=== PATIENT | male | born 1990 | race Caucasian/White ===

== ENCOUNTER 2020-07-02 02:17 | Inpatient (IN) | payer BC ==
[~2020-07-02] VITALS: Ht 190.5 cm; Wt 59.6 kg
[2020-07-02 02:55] LABS: BASOPHILS ABSOLUTE AUTO 0.03 K/mm3 (0.00-0.23); BASOPHILS PERCENT AUTO 0 % (0-2); EOSINOPHILS ABSOLUTE AUTO 0.13 K/mm3 (0.00-0.68); EOSINOPHILS PERCENT AUTO 1 % (0-6); IMMATURE GRAN ABSOLUTE AUTO 0.03 K/mm3 (0.00-0.10); IMMATURE GRAN PERCENT AUTO 0 % (0-1); LYMPHOCYTES ABSOLUTE AUTO 2.94 K/mm3 (0.84-5.20); LYMPHOCYTES PERCENT AUTO 33 % (21-46); MONOCYTES ABSOLUTE AUTO 0.54 K/mm3 (0.16-1.47); MONOCYTES PERCENT AUTO 6 % (4-13); Mean Corpuscular HGB Conc 35.4 g/dL (31.5-36.5); Mean Corpuscular Volume 87 fL (80-100); Mean Platelet Volume 10.9 fL (9.1-12.4); NEUTROPHILS ABSOLUTE AUTO 5.34 K/mm3 (1.96-9.15); NEUTROPHILS PERCENT AUTO 59 % (41-73); Platelet Count 219 K/mm3 (150-400); RDW Coefficient Variation 12.8 % (11.7-14.2); RDW Standard Deviation 39.3 fL (35.1-46.3); Red Blood Cell Count 5.49 M/mm3 (4.30-5.90); White Blood Cell Count 9.01 K/mm3 (4.00-11.30)
[2020-07-02 03:11] LABS: Alanine Aminotransfer (ALT/SGP 27 U/L (12-78); Albumin, Blood 4.6 g/dL (3.4-5.0); Albumin/Globulin Ratio 1.4 (0.8-1.8); Alk Phos 91 U/L (50-136); Anion Gap 8 mmol/L (6-16); Aspartate Aminotrans (AST/SGOT 23 U/L (12-37); Bilirubin, Total 1.2 mg/dL (0.1-1.0); Blood Urea Nitrogen 17 mg/dL (8-24); CO2, Blood 23 mmol/L (21-32); Calcium, Blood 9.3 mg/dL (8.5-10.1); Chloride, Blood 107 mmol/L (98-108); Creatinine, Blood 0.94 mg/dL (0.60-1.20); Globulin, Blood 3.4 g/dL (2.2-4.0); Glomerular Filtration Rate >60 (60-); Glucose, Blood 92 mg/dL (70-99); Sodium, Blood 138 mmol/L (136-145)
[2020-07-02] MEDS ORDERED: [UNRECOGNIZED DRUG - OTHER] (06:07)
--- NOTE | 2020-07-02 07:05 | NUR ---
RECEIVED REPORT FROM DAWNA RUSSELL RN. PT ARRIVED TO RM 335 VIA W/C. A/O. RESP E/U ON RA. RATED PAIN LEVEL AT 8/10 WILL MEDICATE PER EMAR. IVF STARTED AND ABX. PAIN MED GIVEN. WHILE DOING ADMIT, PT REPORTS PAIN RESOLVED. DENIES NAUSEA. NPO AT THIS TIME. INDEPENDENT IN . KNOWS LIMITATIONS. PT ORIENTED TO CALL LT SYSTEM. CALL LT IN REACH. WILL CONTINUE PROVIDE CARE UNTIL SHIFT REPORT.
--- NOTE | 2020-07-02 07:07 | NUR ---
SHIFT SUMMARY: ER ADMIT. PT A/O. ON RA. ABD PAIN RESOLVED AT THIS TIME AFTER 50 MCG FENTANYL GIVEN IV. NS AT 75 MLS/HR, ABX INFUSING. NPO. NO COMPLAINTS AT THIS TIME. WILL CONTINUE TO PROVIDE CARE UNTIL SHIFT REPORT.
--- NOTE | 2020-07-02 07:11 | NUR ---
PT STATES HE DOES FACTOR VIII INFUSIONS AT HOME. PER PT HE USES A BUTTERFLY NEEDLE AND INFUSES HIS DOSE. LAST DOSE WAS 07/01/20. NEXT DOSE DUE TOMORROW 07/03/20. CO-WORKER WILL BRING IN FACTOR VIII. DOES NOT NEED TO BE REFRIGERATED.
--- NOTE | 2020-07-02 18:19 | NUR ---
SHIFT SUMMARY: C/O 09/27 ABD PAIN AND INTERMITTENT NAUSEA; MEDICATED PER EMAR WITH ADEQUATE RELIEF. WAS ABLE TO TOLERATE PO CONTRAST FOR ABD CT. ADVANCED TO CL LIQ DIET SINCE NO IMMEDIATE SURGERY PLANNED. INDEPENDENT IN ROOM. SLEPT MOST OF THE DAY.
[2020-07-03 05:24] LABS: BASOPHILS ABSOLUTE AUTO 0.01 K/mm3 (0.00-0.23); BASOPHILS PERCENT AUTO 0 % (0-2); EOSINOPHILS PERCENT AUTO 2 % (0-6); Hematocrit 38.5 % (37.0-53.0); Hemoglobin 13.7 g/dL (13.5-17.5); IMMATURE GRAN ABSOLUTE AUTO 0.01 K/mm3 (0.00-0.10); IMMATURE GRAN PERCENT AUTO 0 % (0-1); LYMPHOCYTES ABSOLUTE AUTO 1.85 K/mm3 (0.84-5.20); LYMPHOCYTES PERCENT AUTO 37 % (21-46); MONOCYTES ABSOLUTE AUTO 0.49 K/mm3 (0.16-1.47); MONOCYTES PERCENT AUTO 10 % (4-13); Mean Corpuscular HGB 31.1 pg (26.0-34.0); Mean Corpuscular HGB Conc 35.6 g/dL (31.5-36.5); Mean Corpuscular Volume 87 fL (80-100); NEUTROPHILS ABSOLUTE AUTO 2.48 K/mm3 (1.96-9.15); NEUTROPHILS PERCENT AUTO 50 % (41-73); Platelet Count 178 K/mm3 (150-400); RDW Coefficient Variation 12.5 % (11.7-14.2); RDW Standard Deviation 38.8 fL (35.1-46.3); Red Blood Cell Count 4.41 M/mm3 (4.30-5.90); White Blood Cell Count 4.94 K/mm3 (4.00-11.30)
[2020-07-03 05:44] LABS: Alanine Aminotransfer (ALT/SGP 17 U/L (12-78); Albumin, Blood 3.5 g/dL (3.4-5.0); Albumin/Globulin Ratio 1.2 (0.8-1.8); Alk Phos 72 U/L (50-136); Anion Gap 5 mmol/L (6-16); Aspartate Aminotrans (AST/SGOT 14 U/L (12-37); Bilirubin, Total 0.7 mg/dL (0.1-1.0); Blood Urea Nitrogen 11 mg/dL (8-24); Bun/Creatinine Ratio 13.1 (12.0-20.0); CO2, Blood 25 mmol/L (21-32); Calcium, Blood 8.5 mg/dL (8.5-10.1); Chloride, Blood 106 mmol/L (98-108); Creatinine, Blood 0.84 mg/dL (0.60-1.20); Glomerular Filtration Rate >60 (60-); Glucose, Blood 104 mg/dL (70-99); Potassium, Blood 3.6 mmol/L (3.5-5.5); Sodium, Blood 136 mmol/L (136-145); Total Protein, Blood 6.5 g/dL (6.4-8.2)
--- NOTE | 2020-07-03 05:45 | NUR ---
PHYSICIAN COMMUNICATION CONTACTED DIRECTOR OF MARKETING ANALYTICS PHYSICIAN, DR FISHMAN, TO NOTIFY HIM THAT THE PATIENT WAS EXPERIENCING BREAKTHROUGH PAIN AT 7/10 FROM COLITIS FROM A FENTANYL DOSE THREE HOURS PRIOR AND TO REQUEST AN ADDITIONAL ONE TIME DOSE. DR FISHMAN ORDERED A ONE TIME DOSE OF 50 MCG IV FENTANYL.
--- NOTE | 2020-07-03 06:19 | NUR ---
SHIFT SUMMARY PATIENT ALERT AND ORIENTED. MEDICATED PER EMAR FOR PAIN. PATIENT HAD NO COMPLAINTS OF SHORTNESS OF BREATH. NO ACUTE ISSUES NOTED OVERNIGHT. IV PATENT AND FLUSHED. BED IN LOWEST POSITION WITH WHEELS LOCKED. CALL LIGHT WITHIN REACH. REPORT GIVEN TO ONCOMING RN.
--- NOTE | 2020-07-03 18:34 | NUR ---
SHIFT SUMMARY: C/O 6-09/27 ABD PAIN THROUGHOUT THE DAY; MEDICATED PER EMAR WITH GOOD RELIEF. ENCOURAGED HIM TO TRY ONLY TAKING PO PAIN MEDS THAT IS WHAT HE WOULD BE D/C'D WITH, BUT STILL REQUESTING IV FENTANYL. TOLERATING CL LIQ DIET, THINKS HE IS READY FOR DIET ADVANCEMENT. EDUCATED HIM ABOUT CRITERIA FOR D/C (PAIN CONTROLLED, TOLERATING DIET) AND HE EXPRESSED CONCERN ABOUT THE POSSIBILITY OF SURGERY IN HIS FUTURE. INDEPENDENT IN ROOM, NAPPED PART OF THE DAY.
--- NOTE | 2020-07-04 02:36 | NUR ---
SHIFT SUMMARY PATIENT ALERT AND ORIENTED. HAS BEEN MEDICATED PER EMAR FOR PAIN. PATIENT DENIES NAUSEA. BOWEL TONES PRESENT BUT HYPOACTIVE. PATIENT HAS BEEN TOLERATING CLEAR LIQUID DIET WELL AND HAVING AN INCREASED APPETITE OVERNIGHT. IV PATENT AND FLUSHED. BED IN LOWEST POSITION WITH WHEELS LOCKED. CALL LIGHT WITHIN REACH.
--- NOTE | 2020-07-04 06:21 | NUR ---
ASSUMED CARE OF PT @0230. NO ACUTE CHANGES SINCE. AGREE c PREVIOUS NURSE ASSESSMENT. MEDICATED 1x FOR UPPER ABD & R SIDE PAIN. STATES PAIN LEVEL IS BETTER THEN BEFORE. REPORTS HE WOULD LIKE TO "ADVANCE DIET". TOLERATING CLEAR LIQUIDS. CALL LIGHT IN REACH.
--- NOTE | 2020-07-04 17:44 | NUR ---
SHIFT SUMMARY PT AOX4; ADVANCED DIET TO SOFT TODAY; PT REFUSED PAIN MEDICATIONS TODAY; ALTHOUGH, PAIN IS OCCASIONAL. PT TOLERATING DIET. PT INDEPENDENT IN THE ROOM. PT WILL TRY TO GET HIS HOME MEDICATION. NO OTHER CONCERNS AT THIS TIME. BED IS IN THE LOWEST POSITION AND CALL LIGHT WITHIN REACH.
--- NOTE | 2020-07-04 21:31 | NUR ---
PT RESTING IN BED WITH EYES CLOSED. NO APPARENT DISTRESS, RESPIRATIONS NONLABORED AND REGULAR. SHIFT ASSESSMENT DEFERRED AT THIS TIME TO ALLOW FOR UNINTERUPTED REST. WILL CONTINUE TO MONITOR.
--- NOTE | 2020-07-05 04:49 | NUR ---
DEHYDROGENATION OPERATOR HEAD SUMMARY PT ADMITTED FOR APPENDICITIS. FULL CODE. MEDICATED FOR ABD PN PER EMAR. PT DIET WAS ADVANCED FROM LIQUIDS TO SOFT FOODS AND HE IS TOLERATING THIS WELL, STATES APPETITE HAS INCREASED SIGNIFICANTLY. NONDISTRESSED, VSS. NO ACUTE CHANGES THIS SHIFT. WILL CONTINUE TO MONITOR.
[2020-07-05 05:35] LABS: Hematocrit 36.9 % (37.0-53.0); Hemoglobin 13.1 g/dL (13.5-17.5); Mean Corpuscular HGB 31.8 pg (26.0-34.0); Mean Corpuscular HGB Conc 35.5 g/dL (31.5-36.5); Mean Corpuscular Volume 90 fL (80-100); Mean Platelet Volume 11.1 fL (9.1-12.4); Platelet Count 169 K/mm3 (150-400); RDW Coefficient Variation 12.8 % (11.7-14.2); RDW Standard Deviation 39.6 fL (35.1-46.3); Red Blood Cell Count 4.12 M/mm3 (4.30-5.90); White Blood Cell Count 5.16 K/mm3 (4.00-11.30)
--- NOTE | 2020-07-05 05:48 | NUR ---
I AGREE WITH DOCUMENTATION OF EMMANUEL SANCHEZ STUDENT NURSE. EFRAIN MANCIA RN
[2020-07-05 06:07] LABS: Anion Gap 6 mmol/L (6-16); Blood Urea Nitrogen 12 mg/dL (8-24); Bun/Creatinine Ratio 12.9 (12.0-20.0); CO2, Blood 25 mmol/L (21-32); Calcium, Blood 8.4 mg/dL (8.5-10.1); Chloride, Blood 107 mmol/L (98-108); Creatinine, Blood 0.93 mg/dL (0.60-1.20); Glomerular Filtration Rate >60 (60-); Glucose, Blood 110 mg/dL (70-99); Sodium, Blood 138 mmol/L (136-145)
--- NOTE | 2020-07-05 17:41 | NUR ---
SHIFT SUMMARY PT ALERT AND INDEPENDENT IN THE ROOM. C/O OF PAIN ON HIS ABD AND MEDICATED PER EMAR X1. PT REMINDED TO ASK SOMEONE TO BRING HIS MEDICATION FOR HEMOPHILIA. PT TAKES MEDS WHOLE. NO OTHER CONCERNS NOTED. SINUS GOLDEN THIS AM VS; ASYMPTOMATIC AND PT WAS RESTING. DENIES ANY CP OR SOB. BED IS IN THE LOWEST POSITION AND CALL LIGHT WITHIN REACH
--- NOTE | 2020-07-06 04:45 | NUR ---
REPRODUCTION SPECIALIST SUMMARY PT ADMITTED FOR APPENDICITIS. FULL CODE. HE DOES HAVE HEMOPHILIA AND CASE IS BEING FOLLOWED BY [facility]. PT RECIEVING UNASYN ABX Q6 AND 10ML/HOUR NS TKO. PT MEDICATED FOR ABD PN 1X PER EMAR. APPETITE INCREASED EARLY THIS AM AGAIN. HE IS IN NO APPARENT DISTRESS. NO ACUTE CHANGES, VITAL SIGNS ARE STABLE. WILL CONTINUE TO MONITOR.
[2020-07-06 05:18] LABS: BASOPHILS ABSOLUTE AUTO 0.02 K/mm3 (0.00-0.23); BASOPHILS PERCENT AUTO 0 % (0-2); EOSINOPHILS ABSOLUTE AUTO 0.16 K/mm3 (0.00-0.68); EOSINOPHILS PERCENT AUTO 3 % (0-6); Hematocrit 38.2 % (37.0-53.0); Hemoglobin 13.7 g/dL (13.5-17.5); IMMATURE GRAN ABSOLUTE AUTO 0.01 K/mm3 (0.00-0.10); IMMATURE GRAN PERCENT AUTO 0 % (0-1); LYMPHOCYTES ABSOLUTE AUTO 2.78 K/mm3 (0.84-5.20); LYMPHOCYTES PERCENT AUTO 47 % (21-46); MONOCYTES ABSOLUTE AUTO 0.52 K/mm3 (0.16-1.47); MONOCYTES PERCENT AUTO 9 % (4-13); Mean Corpuscular HGB 31.7 pg (26.0-34.0); Mean Corpuscular HGB Conc 35.9 g/dL (31.5-36.5); Mean Corpuscular Volume 88 fL (80-100); Mean Platelet Volume 10.9 fL (9.1-12.4); NEUTROPHILS ABSOLUTE AUTO 2.42 K/mm3 (1.96-9.15); NEUTROPHILS PERCENT AUTO 41 % (41-73); Platelet Count 187 K/mm3 (150-400); RDW Coefficient Variation 12.8 % (11.7-14.2); RDW Standard Deviation 39.1 fL (35.1-46.3); Red Blood Cell Count 4.32 M/mm3 (4.30-5.90); White Blood Cell Count 5.91 K/mm3 (4.00-11.30)
[2020-07-06 05:48] LABS: Alanine Aminotransfer (ALT/SGP 16 U/L (12-78); Albumin, Blood 3.4 g/dL (3.4-5.0); Albumin/Globulin Ratio 1.1 (0.8-1.8); Alk Phos 61 U/L (50-136); Anion Gap 8 mmol/L (6-16); Aspartate Aminotrans (AST/SGOT 8 U/L (12-37); Bilirubin, Total 0.2 mg/dL (0.1-1.0); Blood Urea Nitrogen 15 mg/dL (8-24); Bun/Creatinine Ratio 17.2 (12.0-20.0); CO2, Blood 27 mmol/L (21-32); Calcium, Blood 8.4 mg/dL (8.5-10.1); Chloride, Blood 105 mmol/L (98-108); Creatinine, Blood 0.87 mg/dL (0.60-1.20); Glomerular Filtration Rate >60 (60-); Glucose, Blood 117 mg/dL (70-99); Potassium, Blood 3.9 mmol/L (3.5-5.5); Sodium, Blood 140 mmol/L (136-145); Total Protein, Blood 6.4 g/dL (6.4-8.2)
--- NOTE | 2020-07-06 18:44 | NUR ---
END OF SHIFT SUMMARY: PATIENT REPORTED THAT HIS ABDOMINAL PAIN WAS WELL CONTROLLED WITH ORAL PAIN MEDICATION. PATIENT DENIED NAUSEA OR VOMITING. PATIENT TOLERATING PO FOOD AND LIQUIDS WITHOUT NAUSEA OR ABDOMINAL CRAMPING. PATIENT REPORTED THAT HE IS FEELING BETTER EVERY DAY. PATIENT INDEPENDENT IN THE ROOM. PATIENT DENIES BOWEL MOVEMENT, BUT REPORTS THAT HE DOES NOT FEEL CONSTIPATED. PROVIDED EDUCATION ON OPIATES AND CONSTIPATION. PATIENT RECEPTIVE AND REPORTED THAT HE WILL LET STAFF KNOW IF HE NEEDS FURTHER INTERVENTION.
--- NOTE | 2020-07-06 19:20 | NUR ---
ASSUMED CARE RECEIVED REPORT FROM ALLY GRUBER. PT RESTING, IN NO ACUTE DISTRESS, DENIES PAIN OR NEEDS. CALL LIGHT, POSSESSIONS IN REACH.
--- NOTE | 2020-07-07 04:03 | NUR ---
[employer] SUMMARY PT SLEEPING, IN NO ACUTE DISTRESS. RESPS E/U. NO ACUTE CHANGES OVERNIGHT, PAIN MANAGED WITH MEDS PER EMAR, WITH GOOD EFFECT. PT REPORTS PAIN HAS IMPROVED SINCE ADMISSION. HAS BEEN SLEEPING THROUGH MUCH OF THE NIGHT. NO ACUTE NEEDS ASSESSED AT THIS TIME. CALL LIGHT, POSSESSIONS IN REACH. WILL CONTINUE TO PROVIDE CARE NEEDED UNTIL REPORT GIVEN TO ONCOMING RN.
[2020-07-07] MEDS ORDERED: ACET325 PO (10:10)
[2020-07-07] MEDS ORDERED: AMOCLA875 PO (10:10)
--- NOTE | 2020-07-07 10:47 | NUR ---
[facility] WAS CONTACTED BY THIS RN AT 1030. THE CLININ'S LABORER TREE TAPPING SAID DR. [facility] TEAM WILL CONTACT THE PATIENT BY PHONE TO SET UP AN OUTPATIENT FOLLOW UP APPOINTMENT
--- NOTE | 2020-07-07 11:36 | NUR ---
PATIENT DISCHARGED AT 1136. HIS IV WAS DC'D. VIDEO GAME ANIMATOR IS PUSHING PATIENT DOWNSTAIRS IN WHEELCHAIR. PATIENT HAS ALL OF HIS PERSONAL BELONGINGS.
== END 2020-07-07 11:35 | disposition home or self-care (01) | DRG 393 ==
LOC: ER 02:17 → MEDS 05:32
PROVIDERS: Emergency Medicine; Internal Medicine; ADMIT Internal Medicine
DX: K35.80 Unspecified acute appendicitis (principal); D66 Hereditary factor VIII deficiency; Z88.3 Allergy status to other anti-infective agents; Z88.8 Allergy status to other drugs, medicaments and biological substances
CPT/HCPCS: 36415; 74176; 74177; 80048; 80053; 83690; 85025; 85027; 85651; 96365; 96366; 96374; 96375; 96376; 99285-25; A9270; G0378; J0295; J1170; J2405; J3010; J7030; J7050; Q9967

== ENCOUNTER 2020-09-07 12:47 | Emergency (ER) | payer BC ==
[~2020-09-07] VITALS: Ht 190.5 cm; Wt 63.5 kg
[~2020-09-07 12:47] MED LIST: ACET325 PO; AMOCLA875 PO; [UNRECOGNIZED DRUG - OTHER]
[2020-09-07 13:27] LABS: BASOPHILS ABSOLUTE AUTO 0.01 K/mm3 (0.00-0.23); BASOPHILS PERCENT AUTO 0 % (0-2); EOSINOPHILS ABSOLUTE AUTO 0.04 K/mm3 (0.00-0.68); EOSINOPHILS PERCENT AUTO 1 % (0-6); Hematocrit 38.7 % (37.0-53.0); Hemoglobin 14.1 g/dL (13.5-17.5); IMMATURE GRAN ABSOLUTE AUTO 0.02 K/mm3 (0.00-0.10); IMMATURE GRAN PERCENT AUTO 0 % (0-1); LYMPHOCYTES ABSOLUTE AUTO 2.27 K/mm3 (0.84-5.20); LYMPHOCYTES PERCENT AUTO 41 % (21-46); MONOCYTES ABSOLUTE AUTO 0.45 K/mm3 (0.16-1.47); MONOCYTES PERCENT AUTO 8 % (4-13); Mean Corpuscular HGB 34.2 pg (26.0-34.0); Mean Corpuscular HGB Conc 36.4 g/dL (31.5-36.5); Mean Corpuscular Volume 94 fL (80-100); NEUTROPHILS ABSOLUTE AUTO 2.78 K/mm3 (1.96-9.15); NEUTROPHILS PERCENT AUTO 50 % (41-73); Platelet Count 228 K/mm3 (150-400); RDW Coefficient Variation 14.5 % (11.7-14.2); RDW Standard Deviation 48.5 fL (35.1-46.3); Red Blood Cell Count 4.12 M/mm3 (4.30-5.90); White Blood Cell Count 5.57 K/mm3 (4.00-11.30)
[2020-09-07 13:47] LABS: Alanine Aminotransfer (ALT/SGP 17 U/L (12-78); Albumin, Blood 4.2 g/dL (3.4-5.0); Albumin/Globulin Ratio 1.3 (0.8-1.8); Alk Phos 76 U/L (50-136); Anion Gap 8 mmol/L (6-16); Aspartate Aminotrans (AST/SGOT 14 U/L (12-37); Bilirubin, Total 0.9 mg/dL (0.1-1.0); Blood Urea Nitrogen 13 mg/dL (8-24); Bun/Creatinine Ratio 15.6 (12.0-20.0); CO2, Blood 21 mmol/L (21-32); Chloride, Blood 108 mmol/L (98-108); Creatinine, Blood 0.83 mg/dL (0.60-1.20); Globulin, Blood 3.2 g/dL (2.2-4.0); Glomerular Filtration Rate >60 (60-); Glucose, Blood 107 mg/dL (70-99); Potassium, Blood 3.4 mmol/L (3.5-5.5); Sodium, Blood 137 mmol/L (136-145); Total Protein, Blood 7.4 g/dL (6.4-8.2)
[2020-09-07 14:32] LABS: Source, Urine Clean Catch
[2020-09-07 14:41] LABS: Appearance, Urine Clear (Clear); Bilirubin, Urine Neg (Neg); Blood, Urine Neg (Neg); Color, Urine Yellow (P-Yellow); Glucose Qualitative, Urine Neg (Neg); Ketones, Urine Neg (Neg); Leukocyte Esterase, Urine Neg (Neg); Nitrite, Urine Neg (Neg); Protein, Urine Neg (Neg); Specific Gravity, Urine 1.015 (1.003-1.022); Urobilinogen, Urine NORM (Normal); pH, Urine 6.5 (5.0-8.0)
[2020-09-07] MEDS ORDERED: Vistaril25 MG PO (15:54)
== END 2020-09-07 16:20 | disposition home or self-care (01) ==
LOC: ER 12:47
PROVIDERS: Physician Assistant
DX: F41.9 Anxiety disorder, unspecified (principal); F17.210 Nicotine dependence, cigarettes, uncomplicated; Z88.8 Allergy status to other drugs, medicaments and biological substances
CPT/HCPCS: 36415; 80053; 81003; 83690; 84484; 85025; 93005; 93010; 96361; 96374; 99283-25; A9270; J2405; J7030